=== PATIENT | female | born 1955 | race Caucasian/White ===

== ENCOUNTER 2019-09-09 12:55 | Emergency (ER) | payer OTHER ==
[~2019-09-09] VITALS: Ht 149.9 cm; Wt 68.0 kg
[2019-09-09 13:14] VITALS: BP 123/70
--- NOTE | 2019-09-09 13:18 | NUR ---
PATIENT PRESENTS TO ED WITH C /O COUGH, CONGESTION, EXCESIVE MUCUS, DECREASED APPETITE, BODY ACHING X 10 DAYS, HX OF HTN, THYROID PROBLEM, CERVICAL CANCER, HESTERECTOMY. PATIENT STATES PAIN OF 6/10 AT THIS TIME; VSS; PATIENT POSITIONED FOR COMFORT; HOB ELEVATED; BEDRAILS UP X2; BED DOWN. ER MD MADE AWARE OF PT STATUS.
[2019-09-09] MEDS ORDERED: ONDANSETRON 4 MG ODT PO ONE (14:25)
[2019-09-09 14:56] VITALS: BP 123/70
--- NOTE | 2019-09-09 14:56 | NUR ---
Patient discharged TO HOME. Written and verbal after care instructions given and explained. Rx of ZOFRAN, PROMETHAZINE, VENTOLIN given. Patient educated on indication of medication including possible reaction and side effects. All questions addressed prior to discharge. ID band removed. Patient advised to follow up with PMD.
== END 2019-09-09 14:56 | disposition home or self-care (01) ==
LOC: MED 12:55
DX: J20.9 Acute bronchitis, unspecified (principal); I10 Essential (primary) hypertension; E07.9 Disorder of thyroid, unspecified; F17.210 Nicotine dependence, cigarettes, uncomplicated; Z71.6 Tobacco abuse counseling; Z88.2 Allergy status to sulfonamides; Z90.49 Acquired absence of other specified parts of digestive tract
CPT/HCPCS: 71045; 99283; Q0092